=== PATIENT | male | born 1955 | race African-American/Black ===

== ENCOUNTER 2016-10-11 14:24 | Emergency (ER) | payer MEDICAID ==
[~2016-10-11] VITALS: Ht 190.5 cm; Wt 70.0 kg
[2016-10-11] MEDS ORDERED: LIDOCAINE HCL 2% JELLY 5ML ONE (17:42)
[2016-10-11] MEDS ORDERED: LIDOCAINE HCL 2% JELLY 5ML TOP ONE (17:45)
[2016-10-11 19:18] LABS: BASOPHILS % 0.5 % (0.0-2.0); EOSINOPHILS % 2.7 % (0.0-5.0); HEMOGLOBIN. 14.9 g/dL (14.0-18.0); LYMPHOCYTES % 11.4 % (20.0-50.0); MEAN CORPUSCULAR HEMOGLOBIN 30.6 pg (28.0-32.0); MEAN CORPUSCULAR VOLUME 88.4 fL (80.0-94.0); MEAN PLATELET VOLUME 9.1 fl (7.4-10.4); MONOCYTES % 6.2 % (2.0-8.0); NEUTROPHILS % 79.2 % (40.0-76.0); PLATELET 256 x1000/uL (130-400); RED BLOOD CELL COUNT 4.86 mill/uL (4.7-6.1); RED CELL DISTRIBUTION WIDTH 13.1 % (11.6-14.6)
[2016-10-11 19:22] LABS: INR 1.1; PARTIAL THROMBOPLASTIN TIME 25.2 sec (23.4-31.0); PROTHROMBIN TIME 11.5 sec (9.4-11.6)
[2016-10-11 19:23] LABS: CARBON DIOXIDE 29 mEq/L (21-32); CHLORIDE 108 mEq/L (98-107)
[2016-10-11 21:19] VITALS: BP 166/90
== END 2016-10-11 21:19 | disposition home or self-care (01) ==
LOC: ER 15:59
DX: R33.9 Retention of urine, unspecified (principal); Z87.440 Personal history of urinary (tract) infections
CPT/HCPCS: 36415; 51702; 80048; 85025; 85610; 85730; 99284; Z7610; A4315

== ENCOUNTER 2018-12-14 08:27 | Emergency (ER) | payer MEDICARE ==
[~2018-12-14] VITALS: Ht 188 cm; Wt 73.0 kg
[2018-12-14 09:31] LABS: CLARITY URINE TURBID (CLEAR); COLOR URINE DARK YELLOW (YELLOW); KETONES URINE NEGATIVE (NEGATIVE); LEUKOCYTE ESTERASE URINE 3+ (NEGATIVE); NITRITE URINE NEGATIVE (NEGATIVE); OCCULT BLOOD URINE 2+ (NEGATIVE); PH URINE 5.5 (4.5-8.0); PROTEIN URINE 2+ (NEGATIVE); SPECIFIC GRAVITY URINE 1.018 (1.005-1.030)
[2018-12-14] MEDS ORDERED: PIPERACILLIN/TAZ 3.375G PREMIX 50 ML IV ONE (11:15)
[2018-12-14] MEDS ORDERED: CLINDAMYCIN 600 MG in DEXTROSE 5% WATER 50 ML IV ONE (11:15)
[2018-12-14] MEDS ORDERED: SODIUM CHLORIDE 0.9% 1000ML BAG (SEPSIS BOLUS) IV ONE (11:15)
[2018-12-14 11:45] LABS: HEMATOCRIT. 35.1 % (42.0-52.0); MEAN CORPUSCULAR HEMOGLOBIN 31.2 pg (28.0-32.0); MEAN CORPUSCULAR VOLUME 91.1 fL (80.0-94.0); MEAN PLATELET VOLUME 9.2 fl (7.4-10.4); PLATELET 277 x1000/uL (130-400); RED BLOOD CELL COUNT 3.85 mill/uL (4.7-6.1)
[2018-12-14 11:53] LABS: INR 1.1; PROTHROMBIN TIME 11.4 sec (9.6-11.0)
[2018-12-14 11:54] LABS: CHLORIDE 107 mEq/L (98-107)
[2018-12-14] MEDS ORDERED: CLINDAMYCIN 600MG PREMIX 50 ML IV NR (12:00)
[2018-12-14 12:22] LABS: PLATELET ESTIMATE NORMAL
[2018-12-14 13:20] VITALS: BP 144/85
[2018-12-14 14:23] LABS: *AMPHETAMINES SCREEN URINE NEGATIVE (NEGATIVE); *BARBITURATES SCREEN URINE NEGATIVE (NEGATIVE); *BENZODIAZEPINES SCREEN URINE NEGATIVE (NEGATIVE); *COCAINE SCREEN URINE PRESUMTIVE POSITIVE (NEGATIVE)
[2018-12-14 14:24] LABS: CANNABINOID URINE SCREEN PRESUMTIVE POSITIVE (NEGATIVE); METHADONE URINE SCREEN NEGATIVE (NEGATIVE); OPIATES URINE SCREEN NEGATIVE (NEGATIVE); PHENCYCLIDINE URINE SCREEN NEGATIVE (NEGATIVE)
[2018-12-18 04:09] LABS: CHLAMYDIA TRACHOMATIS NAA Negative (Negative); NEISSERIA GONORRHOEAE NAA Negative (Negative)
== END 2018-12-14 14:25 | disposition left against medical advice (07) ==
LOC: ER 08:45 → CANBEDREQ 12-15 00:04
DX: R65.20 Severe sepsis without septic shock (principal); N49.2 Inflammatory disorders of scrotum; R31.9 Hematuria, unspecified; Z87.440 Personal history of urinary (tract) infections
CPT/HCPCS: 36415; 76870; 80053; 80305; 81003; 83605; 84145; 85025; 85610; 87040; 87077; 87086; 87491; 87591; 93005; 93976; 96365; 96375; 99284; J2543; J3490; J7030; J7060

== ENCOUNTER 2019-02-14 11:03 | Emergency (ER) | payer OTHER, MEDICARE ==
[~2019-02-14] VITALS: Ht 182.9 cm; Wt 75.0 kg
[2019-02-14 12:05] LABS: BG BASE EXCESS -0.6 mmol/L (-2.0-2.0); BG DEOXYHEMOGLOBIN 3.7 % (0.0-5.0); BG FRACTION INSPIRED OXYGEN 21; BG HCO3 ACT 19.6 mmol/L (22.0-26.0); BG METHEMOGLOBIN 0.2 % (0.0-1.5); BG OXYGEN SATURATION 96.3 % (92.0-98.5); BG OXYHEMOGLOBIN 95.1 % (94.0-97.0); BG PCO2 22.6 mmHg (35.0-45.0); BG PH 7.556 (7.350-7.450); BG PO2 78.9 mmHg (75.0-100.0); BG SAMPLE SITE RIGHT BRACHIAL; BG TOTAL HEMOGLOBIN 14.6 g/dL (12.0-18.0); BG VENT MODE ROOM AIR
[2019-02-14] MEDS ORDERED: NITROGLYCERIN OINT 1GM/INCH UDPKT TD ONE (12:30)
[2019-02-14] MEDS ORDERED: FUROSEMIDE 40MG/4ML VIAL IVP ONE (12:30)
[2019-02-14 12:38] LABS: CHLORIDE 109 mEq/L (98-107)
[2019-02-14 12:41] LABS: D-DIMER 1.1 mg/L FEU (<0.50); INR 1.1
[2019-02-14 12:49] LABS: BASOPHILS % 0.6 % (0.0-2.0); EOSINOPHILS % 0.7 % (0.0-5.0); HEMATOCRIT. 44.7 % (42.0-52.0); HEMOGLOBIN. 14.9 g/dL (14.0-18.0); LYMPHOCYTES % 7.8 % (20.0-50.0); MEAN CORPUSCULAR HEMOGLOBIN 30.5 pg (28.0-32.0); MEAN CORPUSCULAR VOLUME 91.3 fL (80.0-94.0); MONOCYTES % 5.6 % (2.0-8.0); NEUTROPHILS % 85.3 % (40.0-76.0); PLATELET 249 x1000/uL (130-400); RED BLOOD CELL COUNT 4.89 mill/uL (4.7-6.1); RED CELL DISTRIBUTION WIDTH 13.8 % (11.6-14.6)
[2019-02-14] MEDS ORDERED: ASPIRIN 325MG EC TABLET PO ONE (13:00)
[2019-02-14] MEDS ORDERED: FUROSEMIDE 40MG/4ML VIAL IV SCH (13:30)
[2019-02-14] MEDS ORDERED: ENOXAPARIN 40MG/0.4ML SYR SUBCUT SCH (13:30)
[2019-02-14] MEDS ORDERED: ONDANSETRON HCL 4MG/2ML INJ IV PRN (13:30)
[2019-02-14] MEDS ORDERED: HYDROCODONE/ACETAMINOPHEN 5/325MG TABLET PO PRN (13:30)
[2019-02-14] MEDS ORDERED: IPRATROPIUM/ALBUTEROL 0.5-3(2.5)MG/3ML NEB HHN PRN (13:30)
[2019-02-14] MEDS ORDERED: ACETAMINOPHEN 325MG TABLET PO PRN (13:30)
[2019-02-14] MEDS ORDERED: CLONIDINE 0.1MG TABLET PO PRN (13:30)
[2019-02-14 15:16] LABS: CLARITY URINE CLEAR (CLEAR); COLOR URINE YELLOW (YELLOW); KETONES URINE NEGATIVE (NEGATIVE); LEUKOCYTE ESTERASE URINE 1+ (NEGATIVE); NITRITE URINE NEGATIVE (NEGATIVE); OCCULT BLOOD URINE NEGATIVE (NEGATIVE); PROTEIN URINE 1+ (NEGATIVE); SPECIFIC GRAVITY URINE 1.016 (1.005-1.030); UROBILINOGEN URINE 0.2 E.U./dL (0.2-1.0)
[2019-02-14] MEDS ORDERED: IOHEXOL-350 100 ML BOTTLE ONE (15:20)
[2019-02-14] MEDS ORDERED: ESMOLOL 2500MG PREMIX 250 ML IV ONE ×2 (15:30→15:45)
[2019-02-14] MEDS ORDERED: METOPROLOL TARTRATE 5MG/5ML VIAL IV ONE (15:30)
[2019-02-14] MEDS ORDERED: LORAZEPAM 2MG/ML CPJ IV ONE (17:00)
[2019-02-14] MEDS ORDERED: ESMOLOL 2500MG PREMIX 250 ML IV SCH (20:00)
[2019-02-14] MEDS ORDERED: ALBUTEROL (0.083%) 2.5MG/3ML NEB HHN ONE (22:00)
[2019-02-15] MEDS ORDERED: MORPHINE SULFATE 4 MG/ML CPJ (NOT FOR IM USE) IV STA (02:38)
[2019-02-15] MEDS ORDERED: ONDANSETRON HCL 4MG/2ML INJ IV STA (02:38)
[2019-02-15 03:08] VITALS: BP 115/84
[2019-02-15] MEDS ORDERED: ASPIRIN 81MG EC TABLET PO SCH (09:00)
== END 2019-02-15 03:10 | disposition short-term general hospital (02) ==
LOC: ER 11:03 → EDBEDREQSVC 13:30 → EDBEDREQ 13:30 → CANBEDREQ 20:41 → ER 02-15 03:10
DX: I21.4 Non-ST elevation (NSTEMI) myocardial infarction (principal); J90 Pleural effusion, not elsewhere classified; R79.89 Other specified abnormal findings of blood chemistry; I11.0 Hypertensive heart disease with heart failure; I50.9 Heart failure, unspecified; Z87.440 Personal history of urinary (tract) infections; Z87.01 Personal history of pneumonia (recurrent); J45.909 Unspecified asthma, uncomplicated
CPT/HCPCS: 36415; 36600; 71045; 71275; 76705; 80053; 81003; 82375; 82550; 82805; 83605; 83880; 84484; 85025; 85379; 85610; 87040; 87804; 93005; 93970; 94640; 96374; 96375; 99291; J1940; J2060; J2270; J2405; J3490; J7611; Q9967

== ENCOUNTER 2023-03-24 14:54 | Emergency (ER) | payer MEDICARE, OTHER ==
[~2023-03-24] VITALS: Ht 188 cm; Wt 88.0 kg
[2023-03-24 14:57] VITALS: O2SAT 97
[2023-03-24 15:28] LABS: BASOPHILS % 0.6 % (0.0-2.0); EOSINOPHILS % 2.1 % (0.0-5.0); HEMOGLOBIN. 12.8 g/dL (14.0-18.0); LYMPHOCYTES % 9.5 % (20.0-50.0); MEAN CORPUSCULAR HEMOGLOBIN 30.3 pg (28.0-32.0); MEAN CORPUSCULAR HGB CONC 32.8 g/dL (31.0-37.0); MEAN CORPUSCULAR VOLUME 92.5 fL (80.0-94.0); MEAN PLATELET VOLUME 9.7 fl (7.4-10.4); MONOCYTES % 6.3 % (2.0-8.0); NEUTROPHILS % 81.5 % (40.0-76.0); PLATELET 279 x1000/uL (130-400); RED BLOOD CELL COUNT 4.22 mill/uL (4.7-6.1); RED CELL DISTRIBUTION WIDTH 14.6 % (11.6-14.6); WHITE BLOOD COUNT 11.5 x1000/uL (4.5-11.0)
[2023-03-24 15:41] LABS: ALANINE AMINOTRANSFERASE 44 IU/L (10-49); ALBUMIN 4.2 g/dL (3.2-4.8); ASPARTATE AMINOTRANSFERASE 39 IU/L (<34); BILIRUBIN TOTAL 1.2 mg/dL (0.1-1.0); CALCIUM 9.5 mg/dL (8.7-10.4); CARBON DIOXIDE 27 mEq/L (21-32); CHLORIDE 109 mEq/L (98-107); CREATININE 1.5 mg/dL (0.6-1.3); GLUCOSE 83 mg/dL (70-105); POTASSIUM 3.8 mEq/L (3.5-5.1); PROTEIN TOTAL 6.7 g/dL (6.0-8.3); SODIUM 143 mEq/L (136-145); UREA NITROGEN BLOOD 20 mg/dL (9-23)
[2023-03-24] MEDS ORDERED: POTA-354 MT (18:22)
[2023-03-24] MEDS ORDERED: POTASSIUM CHLORIDE 20MEQ TABLET SR PO NR (18:30)
[2023-03-24] MEDS ORDERED: FUROSEMIDE 40MG TABLET PO NR (18:30)
[2023-03-24 18:50] VITALS: BP 112/72; PULSE 82; RESP 20; TEMP 98.4
== END 2023-03-24 18:52 | disposition home or self-care (01) ==
LOC: ER 14:54
DX: I11.0 Hypertensive heart disease with heart failure (principal); I50.9 Heart failure, unspecified; J45.909 Unspecified asthma, uncomplicated
CPT/HCPCS: 36415; 71045; 80053; 85025; 93005; 99285